=== PATIENT | female | born 1980 | race Caucasian/White ===

== ENCOUNTER 2016-08-05 03:18 | Emergency (ER) | payer MEDICAID, MEDICARE, OTHER ==
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
[2016-08-05 11:13] VITALS: BP 131/84
== END 2016-08-05 05:50 | disposition home or self-care (01) ==
LOC: CC.ED 03:20
DX: S16.1XXA Strain of muscle, fascia and tendon at neck level, initial encounter (principal); S80.02XA Contusion of left knee, initial encounter; S80.01XA Contusion of right knee, initial encounter; S00.81XA Abrasion of other part of head, initial encounter; F10.129 Alcohol abuse with intoxication, unspecified; J45.909 Unspecified asthma, uncomplicated; F41.9 Anxiety disorder, unspecified; F32.9 Major depressive disorder, single episode, unspecified; V89.2XXA Person injured in unspecified motor-vehicle accident, traffic, initial encounter
CPT/HCPCS: 70450; 72125; 99284

== ENCOUNTER 2017-12-02 15:45 | Emergency (ER) | payer MEDICAID ==
[2017-12-02] MEDS ORDERED: methylPREDNISolone Acetate 80 MG/ML SDV IM ONE (16:53)
[2017-12-02] MEDS ORDERED: cefTRIAXone 1 GM Vial IM ONE (16:53)
[2017-12-02] MEDS ORDERED: Lidocaine 1% 20 ML MDV INJECT ONE (16:53)
--- NOTE | 2017-12-02 17:09 | EDM.PDOC ---
ED HPI GENERAL MEDICAL PROBLEM - General Chief Complaint: Respiratory Problem Stated Complaint: COUGH Time Seen by Provider: 12/02/17 17:00 Source of Information: Reports: Patient History Limitations: Reports: No Limitations - History of Present Illness INITIAL COMMENTS - FREE TEXT/NARRATIVE: Patient presents today with increased cough, sinus pressure and congestion. She states started having symptom over a week ago so did increase her florinef and hydrocortisone meds as has been instructed to in the past. She had a fever for the first few days on onset. Now wheezing and coughing more, having trouble sleeping as a result. Admits to increased sinus congestion/purulent drainage. Mild sore throat. Onset: Gradual Duration: Day(s): Location: Reports: Head, Chest Severity: Moderate Associated Symptoms: Reports: Cough, cough w sputum, Fever/Chills, Shortness of Breath. Denies: Confusion, Chest Pain, Loss of Appetite, Nausea/Vomiting - Related Data Allergies Allergy/AdvReac Type Severity Reaction Status Date / Time No Known Allergies Allergy Verified 08/05/16 03:26 Home Meds: Home Meds Hydrocortisone [Cortef] 10 mg PO BEDTIME 07/19/13 [History] Hydrocortisone [Cortef] 15 mg PO BRK 07/19/13 [History] PARoxetine [Paxil] 40 mg PO DAILY 07/19/13 [History] Albuterol Sulfate [Albuterol Sulfate HFA] 7 gm IH Q6HR PRN 08/16/13 [History] oxyCODONE 5 mg PO DAILY PRN 03/07/15 [History] Gabapentin [Neurontin] 300 mg PO TID 09/29/15 [History] Rivaroxaban [Xarelto] 20 mg PO DAILY 09/29/15 [History] traZODone 25 mg PO BEDTIME PRN 09/29/15 [History] Calcium Carbonate [Calcium] 600 mg PO DAILY 10/17/15 [History] Cholecalciferol (Vitamin D3) [Vitamin D3] 1 tab PO DAILY 10/17/15 [History] LORazepam 0.5 mg PO Q6H PRN 10/17/15 [History] Multivitamin [Multivitamins] 1 tab-cap PO DAILY 10/17/15 [History] Nitroglycerin [Nitrostat] 0.4 mg SL Q5M 10/17/15 [History] Fludrocortisone [Florinef] 0.1 mg PO BID #60 10/19/15 [Rx] Levothyroxine 25 mcg PO ACBREAKFAST #30 tablet 10/19/15 [Rx] Past Medical History Cardiovascular History: Reports: Blood Clots/VTE/DVT Other Cardiovascular History: right heart blockage according to pt Respiratory History: Reports: Asthma 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 Social & Family History - Family History Family Medical History: Noncontributory ED ROS GENERAL - Review of Systems Review Of Systems: See Below Constitutional: Reports: Chills, Malaise. Denies: Fever, Weakness, Decreased Appetite HEENT: Reports: Rhinitis, Sinus Problem. Denies: Ear Pain, Throat Pain Respiratory: Reports: Shortness of Breath, Wheezing, Cough, Sputum Cardiovascular: Denies: Chest Pain, Edema, Lightheadedness Endocrine: Denies: Fatigue GI/Abdominal: Denies: Abdominal Pain, Nausea, Vomiting Skin: Reports: No Symptoms Neurological: Reports: No Symptoms Psychiatric: Reports: No Symptoms ED EXAM, GENERAL - Physical Exam Exam: See Below Exam Limited By: No Limitations General Appearance: Alert, WD/WN, No Apparent Distress Ears: Normal External Exam, Normal TMs Nose: Normal Inspection, Normal Mucosa, Nasal Drainage (purulent discharge noted bilaterally) Throat/Mouth: Normal Inspection, Normal Oropharynx Head: Normocephalic Neck: Normal Inspection, Supple, Non-Tender Respiratory/Chest: No Respiratory Distress, Wheezing Cardiovascular: Regular Rate, Rhythm Neurological: Alert, Oriented Skin Exam: Warm, Dry Course - Orders/Labs/Meds Meds: Medications Discontinued Medications Generic Name Dose Route Start Last Admin Trade Name Freq PRN Reason Stop Dose Admin Ceftriaxone Sodium 1 gm 12/02/17 16:53 12/02/17 17:06 Rocephin IM 12/02/17 16:54 1 gm ONETIME ONE Administration Lidocaine HCl 20 ml 12/02/17 16:53 12/02/17 17:06 Xylocaine 1% INJECT 12/02/17 16:54 20 ml ONETIME ONE Administration Methylprednisolone Acetate 80 mg 12/02/17 16:53 12/02/17 17:06 Depo-Medrol IM 12/02/17 16:54 80 mg ONETIME ONE Administration Departure - Departure Time of Disposition: 17:12 Disposition: Home, Self-Care 01 Condition: Fair Clinical Impression: Exacerbation of asthma, Sinusitis - Discharge Information *PRESCRIPTION DRUG MONITORING PROGRAM REVIEWED*: No *COPY OF PRESCRIPTION DRUG MONITORING REPORT IN PATIENT SAM: No Forms: ED Department Discharge Additional Instructions: 1. Push fluids 2. ProAir inhaler 1-2 puffs every 4-6 hours as needed for wheezing/shortness of breath 3. Ceftin 250 mg BID for 10 days 4. Usual meds for Kayden's Disease 5. Follow up with usual provider for ongoing concerns.
[2017-12-02 20:41] VITALS: BP 114/72
== END 2017-12-02 17:35 | disposition home or self-care (01) ==
LOC: CC.ED 15:45
DX: J45.901 Unspecified asthma with (acute) exacerbation (principal); J32.9 Chronic sinusitis, unspecified; Z79.899 Other long term (current) drug therapy
CPT/HCPCS: 96372; 99282; J0696; J1040

== ENCOUNTER 2018-01-17 16:30 | Emergency (ER) | payer MEDICAID ==
[2018-01-17 16:45] VITALS: BP 124/81
--- NOTE | 2018-01-17 17:14 | EDM.PDOC ---
ED HPI GENERAL MEDICAL PROBLEM - General Chief Complaint: Abdominal Pain Stated Complaint: HORRIBLE SIDE PAIN Time Seen by Provider: 01/17/18 16:55 Source of Information: Reports: Patient History Limitations: Reports: No Limitations - History of Present Illness INITIAL COMMENTS - FREE TEXT/NARRATIVE: Patient presents to the ER with complaints of right upper quadrant abdominal pain. States pain started last evening and has persisted still. Feels nauseated, no vomiting. Has not had any fevers. Has been compliant with her Cortef. No previous history of liver abnormalities. Unaware of issues prior with her gallbladder. She denies eating anything unusual last night that could have precipitated the pain. Had a BM today, no blood noted. Has not had a cough. Thought that she possibly had an issue with her back so went to the chiropractor for adjustment today. Onset: Gradual Duration: Hour(s):, Waxing/Waning Location: Reports: Abdomen Quality: Reports: Sharp, Throbbing Severity: Severe Improves with: Reports: None Worsens with: Reports: Other (lying on back) Associated Symptoms: Reports: Loss of Appetite, Nausea/Vomiting. Denies: Chest Pain, Cough, Fever/Chills, Shortness of Breath, Syncope Right Abdominal Pain Score (Numeric/FACES): 8 - Related Data Allergies Allergy/AdvReac Type Severity Reaction Status Date / Time No Known Allergies Allergy Verified 01/17/18 16:45 Home Meds: Home Meds Hydrocortisone [Cortef] 10 mg PO BEDTIME 07/19/13 [History] Hydrocortisone [Cortef] 15 mg PO BRK 07/19/13 [History] PARoxetine [Paxil] 40 mg PO DAILY 07/19/13 [History] oxyCODONE 5 mg PO DAILY PRN 03/07/15 [History] Fludrocortisone [Florinef] 0.1 mg PO DAILY 12/02/17 [History] Past Medical History HEENT History: Reports: Sinusitis Cardiovascular History: Reports: Blood Clots/VTE/DVT Other Cardiovascular History: right heart blockage according to pt Respiratory History: Reports: Asthma Gastrointestinal History: Reports: None Genitourinary History: Reports: None 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 Musculoskeletal History: Reports: Arthritis Other Musculoskeletal History: lyme disease Neurological History: Reports: None Psychiatric History: Reports: Anxiety, Depression 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/Metabolic History: addisons disease Hematologic History: Reports: None Immunologic History: Reports: None Oncologic (Cancer) History: Reports: None Dermatologic History: Reports: None - Infectious Disease History Infectious Disease History: Reports: MRSA - Past Surgical History Head Surgeries/Procedures: Reports: None HEENT Surgical History: Reports: Tonsillectomy, Other (See Below) Other HEENT Surgeries/Procedures: teeth removed, sinus surgery Respiratory Surgical History: Reports: None GI Surgical History: Reports: None Female Surgical History: Reports: None Neurological Surgical History: Reports: None Musculoskeletal Surgical History: Reports: Amputation Other Musculoskeletal Surgeries/Procedures:: Right ankel surgery. Oncologic Surgical History: Reports: None Dermatological Surgical History: Reports: None Social & Family History - Family History Family Medical History: Noncontributory - Tobacco Use Smoking Status *Q: Current Every Day Smoker Years of Tobacco use: 20 Packs/Tins Daily: 0.2 - Caffeine Use Caffeine Use: Reports: None - Recreational Drug Use Recreational Drug Use: No ED ROS GENERAL - Review of Systems Review Of Systems: See Below Constitutional: Reports: Decreased Appetite. Denies: Fever, Chills, Malaise, Weakness HEENT: Reports: No Symptoms Respiratory: Denies: Shortness of Breath, Cough Cardiovascular: Denies: Chest Pain, Edema, Lightheadedness Endocrine: Denies: Fatigue GI/Abdominal: Reports: Abdominal Pain, Nausea. Denies: Constipation, Diarrhea, Hematochezia, Melena, Vomiting : Reports: No Symptoms Musculoskeletal: Reports: Back Pain Skin: Reports: No Symptoms Neurological: Denies: Headache ED EXAM, GI/ABD - Physical Exam Exam: See Below Exam Limited By: No Limitations General Appearance: Alert, WD/WN, Mild Distress Ears: Normal External Exam, Normal TMs Nose: Normal Inspection, Normal Mucosa, No Blood Throat/Mouth: Normal Inspection, Normal Oropharynx Head: Normocephalic Neck: Normal Inspection, Supple, Non-Tender Respiratory/Chest: No Respiratory Distress, Lungs Clear, Normal Breath Sounds Cardiovascular: Regular Rate, Rhythm GI/Abdominal Exam: Normal Bowel Sounds, Soft, Tender (RUQ) Neurological: Alert, Oriented Course - Vital Signs Last Recorded V/S: Last Vital Signs Temp 96.4 F 01/17/18 16:42 Pulse 98 01/17/18 16:42 Resp 18 01/17/18 16:42 BP 124/81 01/17/18 16:42 Pulse Ox 99 01/17/18 16:42 - Orders/Labs/Meds Orders: Active Orders 24 hr Category Date Time Status Abdomen 2V AP Flat Upright [CR] Stat Exams 01/17/18 16:54 Taken Labs: Laboratory Tests 01/17/18 01/17/18 01/17/18 Range/Units 16:54 17:10 17:10 WBC 13.5 H (5.0-10.0) 10^3/uL RBC 5.19 (4.00-5.50) 10^6/uL Hgb 14.1 (12.0-16.0) g/dL Hct 41.6 (37.0-47.0) % MCV 80.2 L (82.0-94.0) fL MCH 27.2 (27.0-32.0) pg MCHC 33.9 (33.0-38.0) g/dL RDW Coeff of Sandra 15.7 H (11.0-15.0) % Plt Count 345 (150-400) 10^3/uL Neut % (Auto) 50.7 (35-85) % Lymph % (Auto) 40.8 (10-55) % Rabun % (Auto) 5.6 (0-16) % Eos % (Auto) 2.5 (0-5) % Baso % (Auto) 0.4 (0-3) % Neut # (Auto) 6.84 (1.80-7.00) 10^3/uL Lymph # (Auto) 5.49 H (1.00-4.80) 10^3/uL Rabun # (Auto) 0.75 (0.00-0.80) 10^3/uL Eos # (Auto) 0.33 (0.00-0.45) 10^3/uL Baso # (Auto) 0.05 10^3/uL Sodium 135 L (136-145) mEq/L Potassium 4.4 (3.5-5.0) mEq/L Chloride 103 (98-106) mEq/L Carbon Dioxide 22 (21-32) mmol/L BUN 24 H (7-18) mg/dL Creatinine 0.9 (0.6-1.0) mg/dL Est Cr Clr Drug Dosing 80.90 mL/min Estimated GFR (MDRD) > 60 (>=60) mL/min Glucose 98 (75-99) mg/dL Calcium 9.3 (8.4-10.1) mg/dL Total Bilirubin 0.2 (0.0-1.0) mg/dL AST 15 (15-37) U/L ALT 20 (12-78) U/L Alkaline Phosphatase 82 (46-116) U/L C-Reactive Protein 0.3 (0.2-0.8) mg/dL Total Protein 8.3 H (6.4-8.2) g/dL Albumin 3.7 (3.4-5.0) g/dL Amylase 74 (25-115) U/L Urine Color Yellow (YELLOW) Urine Appearance Slightly cloudy (CLEAR) Urine pH 7.0 (4.5-8.0) Ur Specific Jakin 1.020 (1.003-1.020) Urine Protein Negative (NEGATIVE) mg/dL Urine Glucose (UA) Negative (NEGATIVE) mg/dL Urine Ketones Negative (NEGATIVE) mg/dL Urine Occult Blood Negative (NEGATIVE) Urine Nitrite Negative (NEGATIVE) Urine Bilirubin Negative (NEGATIVE) Urine Urobilinogen 0.2 (0.2-1.0) EU/dL Ur Leukocyte Esterase Negative (NEGATIVE) Urine RBC Not seen (0-5) /HPF Urine WBC Not seen (0-5) /HPF Ur Squamous Epith Cells Moderate H (NOT SEEN) /HPF Amorphous Sediment Moderate H (NOT SEEN) /HPF Urine Bacteria Few H (NOT SEEN) /HPF Meds: Medications Discontinued Medications Generic Name Dose Route Start Last Admin Trade Name Hill PRN Reason Stop Dose Admin Ketorolac Tromethamine Confirm 01/17/18 17:35 Toradol Administered 01/17/18 17:36 Dose 60 mg .ROUTE .STK-MED ONE - Re-Assessments/Exams Free Text/Narrative Re-Assessment/Exam: 01/17/18 17:49 Lab results are all essentially negative. WBC is mildly elevated, CRP negative. Did discuss xray, shows moderate amount of stool. May need to proceed with gallbladder ultrasound Departure - Departure Time of Disposition: 17:50 Disposition: Home, Self-Care 01 Condition: Good Clinical Impression: Abdominal pain - Discharge Information *PRESCRIPTION DRUG MONITORING PROGRAM REVIEWED*: No *COPY OF PRESCRIPTION DRUG MONITORING REPORT IN PATIENT SAM: No Forms: ED Department Discharge Additional Instructions: 1. Push fluids 2. Dulcolax tab tonight 3. Usual pain meds as at home 4. We will call to schedule a gallbladder ultrasound for you. 5. Call with any questions or concerns. 6. Follow up with primary care provider if ongoing concerns. - My Orders Last 24 Hours: My Active Orders 01/17/18 16:54 Abdomen 2V AP Flat Upright [CR] Stat - Assessment/Plan Last 24 Hours: My Active Orders 01/17/18 16:54 Abdomen 2V AP Flat Upright [CR] Stat
[2018-01-17] MEDS ORDERED: Ketorolac 60 MG/2 ML SDV ONE (17:35)
[2018-01-17 17:40] LABS: CHLORIDE,CL 103 mEq/L (98-106); SODIUM,NA 135 mEq/L (136-145)
[2018-01-17] MEDS ORDERED: Ketorolac 60 MG/2 ML SDV IM ONE (18:22)
== END 2018-01-17 18:00 | disposition home or self-care (01) ==
LOC: CC.ED 16:30
DX: R10.11 Right upper quadrant pain (principal); F17.210 Nicotine dependence, cigarettes, uncomplicated; Z79.899 Other long term (current) drug therapy
CPT/HCPCS: 36415; 74019; 80053; 81001; 82150; 85025; 86140; 96372; 99284; J1885

== ENCOUNTER 2021-03-06 19:08 | Inpatient (IN) | payer MEDICAID, MEDICARE ==
--- NOTE | 2021-03-06 20:15 | EDM.PDOC ---
ED HPI GENERAL MEDICAL PROBLEM - General Chief Complaint: Chest Pain Stated Complaint: chest pain Time Seen by Provider: 03/06/21 19:30 Source of Information: Reports: Patient, Old Records History Limitations: Reports: No Limitations - History of Present Illness INITIAL COMMENTS - FREE TEXT/NARRATIVE: Maribell is a 40 year old female who presents to the ED with c/o chest pain. Was reportedly seen at [facility] in [place] this afternoon for this complaint and had workup. Patient had left and provider called and notified her to come to ED as her troponin was elevated. Trop elevated to 120. Was recommended to come here and have troponin and EKG repeated. Labs were reportedly otherwise normal including renal function, WBC 9.46, hgb 12.9, CMP. Has had 3 week history of "razor blade like chest pain." Reports it is worse with deep breathing. Has felt short of breath. Pain radiates to her shoulder blades and upper back. She reports she has felt somewhat dizzy. Denies any fever or chills. No other symptoms. Does report that approximately 1 month ago she had a "really bad abscessed tooth." She reports she did not finish her antibiotics. Tooth has improved but this chest pain started about a week after. 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 No hx of known covid infection. Has not gotten covid vaccination. Duration: Getting Worse Location: Reports: Chest Quality: Reports: Sharp, Stabbing Severity: Moderate Worsens with: Reports: Breathing Context: Reports: Activity Associated Symptoms: Reports: Chest Pain, Cough, Shortness of Breath. Denies: Confusion, cough w sputum, Diaphoresis, Fever/Chills, Headaches, Loss of Appetite, Malaise, Nausea/Vomiting, Rash, Seizure, Syncope, Weakness Left Upper Back Pain Score (Numeric/FACES): 7 - Related Data Allergies Allergy/AdvReac Type Severity Reaction Status Date / Time No Known Allergies Allergy Verified 03/06/21 19:13 Home Meds: Home Meds Hydrocortisone [Cortef] 10 mg PO BEDTIME 07/19/13 [History] Hydrocortisone [Cortef] 15 mg PO BRK 07/19/13 [History] PARoxetine [Paxil] 40 mg PO DAILY 07/19/13 [History] oxyCODONE 5 mg PO DAILY PRN 03/07/15 [History] Fludrocortisone [Florinef] 0.1 mg PO DAILY 12/02/17 [History] atorvaSTATin Calcium [Lipitor] 40 mg PO DAILY 03/06/21 [History] Past Medical History HEENT History: Reports: Sinusitis Cardiovascular History: Reports: Blood Clots/VTE/DVT Other Cardiovascular History: right heart blockage according to pt Respiratory History: Reports: Asthma Gastrointestinal History: Reports: None Genitourinary History: Reports: None 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 Musculoskeletal History: Reports: Arthritis Other Musculoskeletal History: lyme disease Neurological History: Reports: None Psychiatric History: Reports: Anxiety, Depression 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 Hematologic History: Reports: None Immunologic History: Reports: None Oncologic (Cancer) History: Reports: None Dermatologic History: Reports: None - Infectious Disease History Infectious Disease History: Reports: MRSA - Past Surgical History Head Surgeries/Procedures: Reports: None HEENT Surgical History: Reports: Tonsillectomy, Other (See Below) Other HEENT Surgeries/Procedures: teeth removed, sinus surgery Cardiovascular Surgical History: Reports: None Respiratory Surgical History: Reports: None GI Surgical History: Reports: None Female Surgical History: Reports: None Endocrine Surgical History: Reports: None Neurological Surgical History: Reports: None Musculoskeletal Surgical History: Reports: Amputation Other Musculoskeletal Surgeries/Procedures:: Right ankel surgery. Oncologic Surgical History: Reports: None Dermatological Surgical History: Reports: None Social & Family History - Family History Family Medical History: No Pertinent Family History - Tobacco Use Tobacco Use Status *Q: Current Every Day Tobacco User Years of Tobacco use: 20 Packs/Tins Daily: 1 - Caffeine Use Caffeine Use: Reports: None - Recreational Drug Use Recreational Drug Use: No ED ROS GENERAL - Review of Systems Review Of Systems: Comprehensive ROS is negative, except as noted in HPI. Constitutional: Denies: Fever, Chills, Malaise, Weakness, Fatigue, Night Sweats HEENT: Reports: No Symptoms Respiratory: Reports: Shortness of Breath, Cough Cardiovascular: Reports: Chest Pain, Dyspnea on Exertion, Lightheadedness. Denies: Edema, Orthopnea Endocrine: Reports: Fatigue GI/Abdominal: Reports: No Symptoms Musculoskeletal: Reports: Back Pain Skin: Reports: No Symptoms Neurological: Reports: Dizziness, Weakness. Denies: Confusion, Headache, Numbness, Tingling Psychiatric: Reports: No Symptoms Hematologic/Lymphatic: Reports: No Symptoms Immunologic: Reports: No Symptoms ED EXAM, GENERAL - Physical Exam Exam: See Below Exam Limited By: No Limitations General Appearance: Alert, WD/WN, No Apparent Distress Eye Exam: Bilateral Eye: EOMI, PERRL Throat/Mouth: Other (poor dentition, missing teeth) Head: Atraumatic, Normocephalic Neck: Normal Inspection, Supple, Non-Tender, Full Range of Motion Respiratory/Chest: No Respiratory Distress, Lungs Clear, Normal Breath Sounds, No Accessory Muscle Use, Chest Non-Tender Cardiovascular: Normal Peripheral Pulses, Regular Rate, Rhythm, No Edema, No JVD, No Murmur, No Rub GI/Abdominal: Normal Bowel Sounds, Soft, Non-Tender, No Organomegaly, No D istention, No Abnormal Bruit, No Mass Back Exam: Normal Inspection, Full Range of Motion, NT Extremities: Other (RLE AMPUTEE) Neurological: Alert, Oriented, CN II-XII Intact, Normal Cognition, Normal Gait, Normal Reflexes, No Motor/Sensory Deficits Psychiatric: Normal Affect, Normal Mood Skin Exam: Warm, Dry, Intact, Normal Color, No Rash Lymphatic: No Adenopathy Course - Vital Signs Last Recorded V/S: Last Vital Signs Temp 96.2 F L 03/06/21 19:11 Pulse 72 03/06/21 19:11 Resp 18 03/06/21 19:11 BP 153/86 H 03/06/21 19:11 Pulse Ox 95 03/06/21 19:11 - Orders/Labs/Meds Labs: Laboratory Tests 03/06/21 03/06/21 Range/Units 19:25 19:25 Lactate Dehydrogenase 126 (100-190) U/L Creatine Kinase 30 (21-215) U/L Troponin I High Sens 106.3 H* (<=51) pg/mL SARS CoV-2 RNA Rapid HAILEY Negative (NEGATIVE) - Re-Assessments/Exams Free Text/Narrative Re-Assessment/Exam: 03/06/21 20:09 Consulted with Plant Attendant Dr. Sultana. Given high flat troponin levels and duration of symptoms with normal EKG less likely to be ischemia. More likely to be endocarditis vs. myocarditis. Recommends start antibiotic treatment and get echocardiogram in the morning. Departure - Departure Time of Disposition: 21:14 Disposition: Refer to Observation Condition: Fair Clinical Impression: Chest pain Qualifiers: Chest pain type: unspecified Qualified Code(s): R07.9 - Chest pain, unspecified Sepsis Event Note (ED) - Evaluation Sepsis Screening Result: No Definite Risk - Focused Exam Vital Signs: Vital Signs Temp Pulse Resp BP Pulse Ox 03/06/21 19:11 96.2 F L 72 18 153/86 H 95 - Problem List & Annotations (1) Chest pain SNOMED Code(s): 57983353 Code(s): R07.9 - CHEST PAIN, UNSPECIFIED Status: Acute Current Visit: Yes Qualifiers: Chest pain type: unspecified Qualified Code(s): R07.9 - Chest pain, unspecified - Assessment/Plan Assessment:: Chest pain, concerns for myocarditis/endocarditis Plan: Consulted with human resources coordinator Dr. Sultana. Will admit for IV antibiotics and obtain echocardiogram in am. Monitor on telemetry. Repeat labs in am.
[2021-03-06] MEDS ORDERED: Sodium Chloride 0.9% 10 ML Syringe FLUSH PRN (21:30)
[2021-03-06] MEDS ORDERED: Temazepam 15 MG Cap PO PRN (21:30)
[2021-03-06] MEDS ORDERED: Enoxaparin 30 MG/0.3 ML Syringe SUBCUT SCH (22:15)
[2021-03-06] MEDS: Piperacillin/Tazobactam 3.375 GM in Sodium Chloride 0.9% 100 ML IV SCH (22:27)
[2021-03-06] MEDS ORDERED: VANCOmycin 2 GM/400 ML 2 GM in Premix Bag 1 BAG IV SCH (23:00)
[2021-03-07] MEDS: Ibuprofen 200 MG Tab PO PRN ×2 (02:13→08:21)
[2021-03-07] MEDS: Piperacillin/Tazobactam 3.375 GM in Sodium Chloride 0.9% 100 ML IV SCH ×4 (04:20→21:39)
[2021-03-07] MEDS: Acetaminophen 325 MG Tab PO PRN ×2 (04:28→12:12)
[2021-03-07] MEDS ORDERED: FLUDROCORTISONE 0.1 MG PO SCH (08:00)
[2021-03-07] MEDS ORDERED: PAROXETINE 40 MG PO SCH (08:00)
[2021-03-07] MEDS: HYDROCORTISONE 10 MG PO SCH (08:16)
[2021-03-07] MEDS: PAROXETINE HCL 25 MG PO SCH (08:17)
[2021-03-07] MEDS: FLUDROCORTISONE 0.1 MG PO SCH ×2 (08:17→19:38)
[2021-03-07] MEDS ORDERED: OXYCODONE 10 MG PO PRN (08:35)
--- NOTE | 2021-03-07 10:39 | PN ---
DATE: 03/07/2021 S: Maribell was admitted last night for suspected endocarditis. She had been dealing with some sharp anterior chest pain and shortness of breath for about 3 weeks. She was evaluated at [place] by an [facility] provider and was subsequently sent home, called later, and told her troponin was high. I do not know what their EKG showed at that placed. Nevertheless, she has been having some pleuritic-type anterior chest pain, worse with a deep breaths and sometimes turning, not a lot of cough, but she has been running temps. Isabelle Winston evaluated her in our emergency room and admitted her at the advice of Cardiology for possible endocarditis. She is on vanco and Zosyn at this time and an echocardiogram is pending. The patient has been running temps but she has not had any blood pressure irregularly. She always runs in the low 100s upper 90s typically. She is saturating at 94% on room air and at this time, denies any other concerns. O: GENERAL On physical exam, the patient is in her usual state. HEENT: Grossly benign. The left lower dental bridge shows a capped tooth in the premolar region that shows no erythema, but prior apparently there was a prior abscess there and it is overdue for pulling. NECK: Appears supple. PULMONARY: Lung sounds appear clear throughout. CARDIAC: Tones are distant, regular and no gross abnormalities auscultated. ABDOMEN: Soft. EXTREMITIES: Left lower extremity without edema. ASSESSMENT: 1. PLEURITIC ANTERIOR CHEST PAIN. 2. FEVERS. 3. HISTORY OF TOOTH ABSCESS. P: Patient will continue on IV antibiotics. Echocardiogram today, we are still waiting on potential for transfer. I know Isabelle has made multiple calls but all beds are filled at this time, but patient is on a waiting list as she will need an expert consultation. We are having a hard time with IV access and she will need a PICC line if she requires 6 to 8 weeks of IV antibiotic therapy. LILLI/DENICE /[id number]
--- NOTE | 2021-03-07 15:15 | PCM.SN.2 ---
- Free Text/Narrative Note: Again attempted to transfer patient to higher level of care. Contacted [facility], [facility], Stephanie Barahona, [facility] and Abiel Perez, all who have no bed availability and cannot accept transfer. Pedro Barahona requests call back once echo results available to see if they can accomodate transfer of patient.
[2021-03-07] MEDS: Enoxaparin 40 MG/0.4 ML Syringe SUBCUT SCH (19:40)
[2021-03-07] MEDS: VANCOmycin 1.75 GM/350 ML 1.75 GM in Premix Bag 1 BAG IV SCH (19:41)
[2021-03-07] MEDS ORDERED: ATORVASTATIN CALCIUM 40 MG PO SCH (20:00)
[2021-03-07] MEDS ORDERED: HYDROCORTISONE 5 MG PO SCH (20:00)
[2021-03-08] MEDS: Piperacillin/Tazobactam 3.375 GM in Sodium Chloride 0.9% 100 ML IV SCH ×4 (03:57→22:28)
[2021-03-08] MEDS: FLUDROCORTISONE 0.1 MG PO SCH (07:52)
[2021-03-08] MEDS: HYDROCORTISONE 10 MG PO SCH (07:53)
[2021-03-08] MEDS: PAROXETINE HCL 25 MG PO SCH (07:53)
[2021-03-08 09:17] LABS: CHLORIDE,CL 108 mEq/L (98-106); SODIUM,NA 139 mEq/L (136-145)
[2021-03-08] MEDS: Ibuprofen 200 MG Tab PO PRN (13:08)
--- NOTE | 2021-03-08 19:46 | PCM.PN ---
- General Info Date of Service: 03/08/21 Admission Dx/Problem (Free Text): Chest Pain Subjective Update: Patient is resting comfortably. States her chest discomfort/shortness of breath is much improved. Slept well. Afebrile. Has been eating and drinking well. Denies nausea or vomiting. Does have generalized pain but "no worse, no better". Blood pressure mildly but has remained stable. Functional Status: Reports: Pain Controlled, Tolerating Diet - Review of Systems General: Reports: Fatigue. Denies: Fever HEENT: Denies: Ear Pain, Sinus Congestion, Rhinitis Pulmonary: Reports: Shortness of Breath, Pleuritic Chest Pain. Denies: Cough Cardiovascular: Denies: Chest Pain, Edema, Lightheadedness Gastrointestinal: Reports: Vomiting. Denies: Abdominal Pain, Nausea Genitourinary: Reports: No Symptoms Musculoskeletal: Reports: Back Pain - Patient Data Vitals - Most Recent: Last Vital Signs Temp 97.6 F 03/08/21 16:00 Pulse 75 03/08/21 16:00 Resp 18 03/08/21 16:00 BP 102/69 03/08/21 16:00 Pulse Ox 98 03/08/21 16:00 Weight - Most Recent: 190 lb 8 oz Lab Results Last 24 Hours: Laboratory Results - last 24 hr 03/08/21 03/08/21 Range/Units 08:49 08:49 WBC 4.6 (4.0-11.0) 10^3/uL RBC 4.21 (4.00-5.50) x10^6/uL Hgb 12.2 (12.0-16.0) g/dL Hct 35.1 L (37.0-47.0) % MCV 83.4 (83.0-97.0) fL MCH 29.0 (27.0-32.0) pg MCHC 34.8 (32.0-36.0) g/dL RDW Coeff of Sandra 11.9 (11.0-15.0) % Plt Count 258 (150-400) 10^3/uL Immature Gran % (Auto) 0.0 (0.0-4.9) % Neut % (Auto) 45.3 (41-71) % Lymph % (Auto) 40.6 (24-44) % Kent % (Auto) 8.6 (0-10) % Eos % (Auto) 4.8 (0-6) % Baso % (Auto) 0.7 (0-1) % Neut # (Auto) 2.07 (1.80-8.00) x10^3/uL Lymph # (Auto) 1.85 (0.60-5.00) 10^3/uL Kent # (Auto) 0.39 (0.00-1.50) 10^3/uL Eos # (Auto) 0.22 (0.00-1.50) 10^3/uL Baso # (Auto) 0.03 (0.00-0.50) 10^3/uL Immature Gran # (Auto) 0.00 (0.00-0.49) 10^3/uL Sodium 139 (136-145) mEq/L Potassium 4.2 (3.5-5.0) mEq/L Chloride 108 H (98-106) mEq/L Carbon Dioxide 22 (21-32) mmol/L BUN 10 (7-18) mg/dL Creatinine 1.0 (0.6-1.0) mg/dL Est Cr Clr Drug Dosing 70.71 mL/min Estimated GFR (MDRD) > 60 (>=60) mL/min Glucose 149 H D (75-99) mg/dL Calcium 8.5 (8.4-10.1) mg/dL Total Bilirubin 0.2 (0.0-1.0) mg/dL AST 42 H (15-37) U/L ALT 62 (12-78) U/L Alkaline Phosphatase 86 (46-116) U/L Troponin I High Sens 111.2 H* (<=51) pg/mL C-Reactive Protein 5.3 H (0.2-0.8) mg/dL Total Protein 6.9 (6.4-8.2) g/dL Albumin 3.0 L (3.4-5.0) g/dL Adrián Results Last 24 Hours: Microbiology 03/06/21 21:05 Aerobic Blood Culture - Preliminary Blood - Venous NO GROWTH AFTER 1 DAY Anaerobic Blood Culture - Preliminary NO GROWTH AFTER 1 DAY Med Orders - Current: Current Medications Acetaminophen (Acetaminophen 325 Mg Tab) 650 mg PO Q4H PRN PRN Reason: Pain (Mild 1-3)/fever Last Admin: 03/07/21 12:12 Dose: 650 mg Documented by: Atorvastatin Calcium (Atorvastatin 20 Mg Tab) 40 mg PO BEDTIME [facility] Enoxaparin Sodium (Enoxaparin 40 Mg/0.4 Ml Syringe) 40 mg SUBCUT Q24H [facility] Last Admin: 03/07/21 19:40 Dose: 40 mg Documented by: Fludrocortisone Acetate (Fludrocortisone 0.1 Mg Tab) 0.1 mg PO BID [facility] Hydrocortisone (Hydrocortisone 20 Mg Tab) 10 mg PO BEDTIME [facility] Hydrocortisone (Hydrocortisone 20 Mg Tab) 15 mg PO DAILY@0800 [facility] Piperacillin Sod/Tazobactam (Sod 3.375 gm/ Sodium Chloride) 100 mls @ 200 mls/hr IV Q6H [facility] Last Admin: 03/08/21 16:59 Dose: 200 mls/hr Documented by: Vancomycin HCl 1.75 gm/ Premix 350 mls @ 200 mls/hr IV Q24H [facility] Stop: 03/08/21 20:01 Last Admin: 03/07/21 19:41 Dose: 200 mls/hr Documented by: Vancomycin HCl 1.75 gm/ Premix 350 mls @ 200 mls/hr IV Q12H [facility] Ibuprofen (Ibuprofen 200 Mg Tab) 400 mg PO Q6H PRN PRN Reason: Pain (mild 1-3) Last Admin: 03/08/21 13:08 Dose: 400 mg Documented by: Paroxetine Hcl 25 Mg Tab.Er.24h Own Med 25 mg PO DAILY [facility] Last Admin: 03/08/21 07:53 Dose: 25 mg Documented by: Oxycodone HCl (Oxycodone 5 Mg Tab) 10 mg PO Q12H [facility] Sodium Chloride (Sodium Chloride 0.9% 10 Ml Syringe) 10 ml FLUSH ASDIRECTED PRN PRN Reason: Keep Vein Open Temazepam (Temazepam 15 Mg Cap) 15 mg PO BEDTIME PRN PRN Reason: Sleep Vancomycin HCl (Pharmacy To Dose - Vancomycin) 1 dose .XX ASDIRECTED [facility] Discontinued Medications Enoxaparin Sodium (Enoxaparin 30 Mg/0.3 Ml Syringe) 30 mg SUBCUT BEDTIME [facility] Stop: 03/06/21 22:16 Last Admin: 03/06/21 22:29 Dose: 30 mg Documented by: Fludrocortisone Acetate (Fludrocortisone 0.1 Mg Tab Own Med) 0.1 mg PO BID [facility] Last Admin: 03/08/21 07:52 Dose: 0.1 mg Documented by: Vancomycin HCl 2 gm/ Premix 400 mls @ 200 mls/hr IV ONETIME [facility] Last Admin: 03/06/21 22:29 Dose: 200 mls/hr Documented by: Atorvastatin Calcium [Lipitor] 40 Mg Tablet *Own Med* 40 mg PO BEDTIME [facility] Last Admin: 03/07/21 19:37 Dose: 40 mg Documented by: Non-Formulary Medication (Fludrocortisone [Florinef]) 0.1 mg PO DAILY [facility] (Hydrocortisone [ Cortef] 5 Mg Tablet) *Pt Own Medication 10 mg PO BEDTIME [facility] Last Admin: 03/07/21 19:39 Dose: 10 mg Documented by: (Hydrocortisone [ Cortef] 10 Mg Tablet )*Pt Own Medication 15 mg PO DAILY@0800 [facility] Last Admin: 03/08/21 07:53 Dose: 15 mg Documented by: Oxycodone 10mg Tab * (*Ptom) 0 each PO Q12H PRN PRN Reason: Pain Non-Formulary Medication (Paroxetine [Paxil]) 40 mg PO DAILY [facility] Non-Formulary Medication Oxycodone 10mg 0 each PO Q12H [facility] Oxycodone HCl (Oxycodone 5 Mg Tab) 10 mg PO Q12H [facility] - Exam General: Alert, Oriented HEENT: Mucous Membr. Moist/[place] Neck: Supple Lungs: Clear to Auscultation, Normal Respiratory Effort, Other (no palpable discomfort to chest ) Cardiovascular: Regular Rate, Regular Rhythm GI/Abdominal Exam: Normal Bowel Sounds, Soft, Non-Tender Skin: Warm, Dry Neurological: No New Focal Deficit - Patient Data Lab Results Last 24 hrs: Laboratory Results - last 24 hr 03/08/21 03/08/21 Range/Units 08:49 08:49 WBC 4.6 (4.0-11.0) 10^3/uL RBC 4.21 (4.00-5.50) x10^6/uL Hgb 12.2 (12.0-16.0) g/dL Hct 35.1 L (37.0-47.0) % MCV 83.4 (83.0-97.0) fL MCH 29.0 (27.0-32.0) pg MCHC 34.8 (32.0-36.0) g/dL RDW Coeff of Sandra 11.9 (11.0-15.0) % Plt Count 258 (150-400) 10^3/uL Immature Gran % (Auto) 0.0 (0.0-4.9) % Neut % (Auto) 45.3 (41-71) % Lymph % (Auto) 40.6 (24-44) % Kent % (Auto) 8.6 (0-10) % Eos % (Auto) 4.8 (0-6) % Baso % (Auto) 0.7 (0-1) % Neut # (Auto) 2.07 (1.80-8.00) x10^3/uL Lymph # (Auto) 1.85 (0.60-5.00) 10^3/uL Kent # (Auto) 0.39 (0.00-1.50) 10^3/uL Eos # (Auto) 0.22 (0.00-1.50) 10^3/uL Baso # (Auto) 0.03 (0.00-0.50) 10^3/uL Immature Gran # (Auto) 0.00 (0.00-0.49) 10^3/uL Sodium 139 (136-145) mEq/L Potassium 4.2 (3.5-5.0) mEq/L Chloride 108 H (98-106) mEq/L Carbon Dioxide 22 (21-32) mmol/L BUN 10 (7-18) mg/dL Creatinine 1.0 (0.6-1.0) mg/dL Est Cr Clr Drug Dosing 70.71 mL/min Estimated GFR (MDRD) > 60 (>=60) mL/min Glucose 149 H D (75-99) mg/dL Calcium 8.5 (8.4-10.1) mg/dL Total Bilirubin 0.2 (0.0-1.0) mg/dL AST 42 H (15-37) U/L ALT 62 (12-78) U/L Alkaline Phosphatase 86 (46-116) U/L Troponin I High Sens 111.2 H* (<=51) pg/mL C-Reactive Protein 5.3 H (0.2-0.8) mg/dL Total Protein 6.9 (6.4-8.2) g/dL Albumin 3.0 L (3.4-5.0) g/dL Result Diagrams: 03/08/21 08:49 03/08/21 08:49 Adrián Results Last 24 hrs: Microbiology 03/06/21 21:05 Aerobic Blood Culture - Preliminary Blood - Venous NO GROWTH AFTER 1 DAY Anaerobic Blood Culture - Preliminary NO GROWTH AFTER 1 DAY Sepsis Event Note - Evaluation Sepsis Screening Result: No Definite Risk - Focused Exam Vital Signs: Vital Signs Temp Temp Pulse Resp BP Pulse Ox 03/08/21 16:00 97.6 F 75 18 102/69 98 03/08/21 12:00 98.6 F 95 16 110/45 L 96 03/08/21 08:00 97 F 58 L 18 113/65 98 - Problem List & Annotations (1) Elevated troponin SNOMED Code(s): 884318646, 402730100, 514084890 Code(s): R77.8 - OTHER SPECIFIED ABNORMALITIES OF PLASMA PROTEINS Status: Acute Priority: High Current Visit: Yes (2) Chest pain SNOMED Code(s): 05967414 Code(s): R07.9 - CHEST PAIN, UNSPECIFIED Status: Acute Priority: High Current Visit: Yes Qualifiers: Chest pain type: unspecified Qualified Code(s): R07.9 - Chest pain, unspecified - Problem List Review Problem List Initiated/Reviewed/Updated: Yes - My Orders Last 24 Hours: My Active Orders 03/08/21 16:48 Patient Status [ADT] Routine 03/08/21 20:00 oxyCODONE 10 mg PO Q12H 03/09/21 05:11 BASIC METABOLIC PANEL,BMP [CHEM] AM C-REACTIVE PROTEIN [CHEM] AM CBC WITH AUTO DIFF [HEME] AM TROPONIN I HIGH SENSITIVITY [CHEM] AM - Assessment Assessment:: Chest Pain Elevated Troponin - Plan Plan:: Patient is feeling better today. Vital signs are stable. Did have echocardiogram yesterday afternoon, waiting on results. Troponin is improved at 111. CRP 5.3. Other labs unremarkable. Have been unable to transfer patient due to lack of available beds. Genna did call today with questions in regards to status and need for further cardiology work up. Still on waiting list. Continue to give Zosyn and Vancomycin. Repeat labs in am.
[2021-03-08] MEDS ORDERED: oxyCODONE 5 MG Tab PO SCH (20:00)
[2021-03-08] MEDS ORDERED: Hydrocortisone 20 MG Tab PO SCH (20:00)
[2021-03-08] MEDS ORDERED: OXYCODONE 10 MG PO SCH (20:00)
[2021-03-08] MEDS ORDERED: atorvaSTATin 20 MG Tab PO SCH (20:00)
[2021-03-08] MEDS: oxyCODONE 5 MG Tab PO SCH (20:27)
[2021-03-08] MEDS: Fludrocortisone 0.1 MG Tab PO SCH (20:28)
[2021-03-08] MEDS: VANCOmycin 1.75 GM/350 ML 1.75 GM in Premix Bag 1 BAG IV SCH (20:36)
[2021-03-08] MEDS: Enoxaparin 40 MG/0.4 ML Syringe SUBCUT SCH (20:43)
[2021-03-09] MEDS: Piperacillin/Tazobactam 3.375 GM in Sodium Chloride 0.9% 100 ML IV SCH ×2 (04:12→09:59)
[2021-03-09 07:54] VITALS: BP 107/52; PULSE 48
[2021-03-09] MEDS ORDERED: VANCOmycin 1.75 GM/350 ML 1.75 GM in Premix Bag 1 BAG IV SCH (08:00)
[2021-03-09] MEDS ORDERED: Hydrocortisone 20 MG Tab PO SCH (08:00)
[2021-03-09] MEDS: Fludrocortisone 0.1 MG Tab PO SCH (08:20)
[2021-03-09] MEDS: oxyCODONE 5 MG Tab PO SCH (08:20)
[2021-03-09] MEDS: PAROXETINE HCL 25 MG PO SCH (08:21)
[2021-03-09 08:24] LABS: CHLORIDE,CL 110 mEq/L (98-106); SODIUM,NA 143 mEq/L (136-145)
--- NOTE | 2021-03-09 11:19 | PN ---
DATE: 03/09/2021 S: Maribell is doing fine. She has not had any fevers since admission. She denies any shortness of breath or chest pain at this time. Eating well without any difficulty. Saturations are in the high 90s on room air. Lab work is reviewed from today, which shows a drop in her CRP. Her troponin has also steadily declined since Saturday as well. Echocardiogram did come back and showed no vegetations on any valves at this time. Yesterday, Nafisa Jarrett PA-C in my absence did once again get hold of Cardiology, and transfer was unavailable due to beds being full. O: GENERAL: She is pleasant, alert, and cooperative. NECK: Supple. Veins are flat. LUNGS: Lung sounds remain clear throughout. CARDIAC: Tones are regular. No murmur, gallop, or rub auscultated. ABDOMEN: Her abdomen is soft. EXTREMITIES: Left lower extremity has no edema. ASSESSMENT: 1. CHEST PAIN, IMPROVED. 2. ELEVATED TROPONIN, IMPROVED. 3. GABRIEL DISEASE. P: The patient has improved labs. Completely normal vital signs. Normal echocardiogram as well as negative blood cultures. I did have a long discussion with the patient about the possible need for transesophageal echocardiogram. I will try to get hold of Cardiology today to get their recommendation on ruling out endocarditis before she is discharged. LILLI/DENICE /[id number]
--- NOTE | 2021-03-09 14:58 | DISCH ---
ADMISSION DIAGNOSES: 1. Chest pain. 2. Elevated troponin. 3. Gabriel disease. DISCHARGE DIAGNOSIS: 1. CHEST PAIN, IMPROVED. 2. ELEVATED TROPONIN, IMPROVING. 3. LIKELY MYOCARDITIS. 4. GABRIEL DISEASE. HISTORY: The patient is a 40-year-old female who presented with an elevated troponin from an outside facility along with some pleuritic-type chest pain. She had a URI about a month ago along with an abscessed tooth. She presented to our facility after she had seen her primary provider in [place]. She had already been sent home and then found to have an elevated troponin, so she presented to our facility. At that time, she had a normal EKG. Her vital signs were fine. Low-grade temps were noted but no vital sign irregularities. She was admitted for IV antibiotics in case she had endocarditis. HOSPITAL COURSE: The patient did well while here. She was initially started on vancomycin and Zosyn and has been on them up until the time of discharge. Her troponin has slowly gotten better with a blanca of 141, now down to 94. CRP is essentially 0. She has essentially been afebrile. Blood cultures were negative. A transthoracic echocardiogram showed no signs of any valve vegetations and likelihood is this represented a viral myocarditis. Cardiology was consulted and no further recommendations given prior to the patient's discharge. We did talk to Infectious Disease and ran the case by them, they do feel she should have a followup troponin and echocardiogram in 2 weeks' time, and we will have that facilitated at [facility] in [place] through patient's primary provider Natalie Aguilar. COMPLICATIONS: During this stay were none. CONSULTATIONS: None. DISPOSITION: Discharged home with instruction for followup at [facility] in 2 weeks' time. LILLI/DENICE /[id number]
== END 2021-03-09 12:35 | disposition home or self-care (01) | DRG 315 ==
LOC: CC.ED 19:08 → CC.MS 20:30 → UNDOADMOB 20:30 → CC.MS 20:50 → OBSVTOIN 03-08 16:48
PROVIDERS: ADMIT Nurse Practitioner Family; ATTEND Family Medicine
DX: R07.9 Chest pain, unspecified (principal); I51.4 Myocarditis, unspecified; E27.1 Primary adrenocortical insufficiency; Z79.899 Other long term (current) drug therapy; J45.909 Unspecified asthma, uncomplicated; M19.90 Unspecified osteoarthritis, unspecified site; F41.9 Anxiety disorder, unspecified; F32.A Depression, unspecified; Z86.718 Personal history of other venous thrombosis and embolism; Z79.01 Long term (current) use of anticoagulants; R50.9 Fever, unspecified; Z86.14 Personal history of Methicillin resistant Staphylococcus aureus infection; Z90.89 Acquired absence of other organs; F17.210 Nicotine dependence, cigarettes, uncomplicated; R77.8 Other specified abnormalities of plasma proteins; Z20.822 Contact with and (suspected) exposure to COVID-19
CPT/HCPCS: 36415 ×3; 80048; 80053; 82550; 83615; 84484 ×3; 85025 ×2; 86140 ×2; 87040; 87635; 93005; 93306; 96372; 96374; 96375; 99285; A9270 ×14; J1650 ×2; J2543 ×7; J3370 ×2; U0002

== ENCOUNTER 2021-04-04 15:28 | Emergency (ER) | payer MEDICAID ==
[2021-04-04 15:41] VITALS: BP 134/92; PULSE 79
[2021-04-04] MEDS ORDERED: Lidocaine 1% 30 ML SDV ONE ×2 (15:53→15:55)
[2021-04-04] MEDS ORDERED: cefTRIAXone 1 GM Vial IM ONE (16:13)
--- NOTE | 2021-04-04 16:17 | EDM.PDOC ---
ED HPI GENERAL MEDICAL PROBLEM - General Chief Complaint: General Stated Complaint: TOOTH ABCESS Time Seen by Provider: 04/04/21 16:00 Source of Information: Reports: Patient History Limitations: Reports: No Limitations - History of Present Illness INITIAL COMMENTS - FREE TEXT/NARRATIVE: Maribell is a 40 yo female who presents to the ED with c/o right sided tooth abscess. Reports the last 3 days pain in her right upper tooth has increased, as has the swelling to the right side of her face. REports this is a recurrent issue for her and she needs to get this particular tooth pulled, but her dentist is out of the office all week. She reports since the swelling has gotten worse, she has had some sinus congestion on that side as well as discoloration under her eye. She rates pain 7/10 to right upper tooth. Does report gum swelling. No drainage. Is missing multiple teeth. Hx of drug use. Denies any fever, chills, N/V/D. 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, NSAIDS Right Upper Oral/Mouth Pain Score (Numeric/FACES): 7 - Related Data Allergies Allergy/AdvReac Type Severity Reaction Status Date / Time No Known Allergies Allergy Verified 04/04/21 15:41 Home Meds: Home Meds Hydrocortisone [Cortef] 10 mg PO BEDTIME 07/19/13 [History] Hydrocortisone [Cortef] 15 mg PO BRK 07/19/13 [History] oxyCODONE 5 mg PO DAILY PRN 03/07/15 [History] atorvaSTATin Calcium [Lipitor] 40 mg PO DAILY 03/06/21 [History] Fludrocortisone [Florinef] 0.1 mg PO BID 03/07/21 [History] PARoxetine HCL [Paroxetine ER] 25 mg PO DAILY 03/07/21 [History] Clindamycin HCl 300 mg PO QID 10 Days #40 capsule 04/04/21 [Rx] Past Medical History HEENT History: Reports: Sinusitis Cardiovascular History: Reports: Blood Clots/VTE/DVT Other Cardiovascular History: right heart blockage according to pt Respiratory History: Reports: Asthma Gastrointestinal History: Reports: None Genitourinary History: Reports: None 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: has not had a period in months Musculoskeletal History: Reports: Arthritis Other Musculoskeletal History: lyme disease Neurological History: Reports: None Psychiatric History: Reports: Anxiety, Depression Endocrine/Metabolic History: Reports: [place]'s Disease Other Endocrine/Metabolic History: addisons disease Hematologic History: Reports: None Immunologic History: Reports: None Oncologic (Cancer) History: Reports: None Dermatologic History: Reports: None - Infectious Disease History Infectious Disease History: Reports: MRSA - Past Surgical History Head Surgeries/Procedures: Reports: None HEENT Surgical History: Reports: Tonsillectomy, Other (See Below) Other HEENT Surgeries/Procedures: teeth removed, sinus surgery Cardiovascular Surgical History: Reports: None Respiratory Surgical History: Reports: None GI Surgical History: Reports: None Female Surgical History: Reports: None Endocrine Surgical History: Reports: None Neurological Surgical History: Reports: None Musculoskeletal Surgical History: Reports: Amputation Other Musculoskeletal Surgeries/Procedures:: Right ankel surgery. Oncologic Surgical History: Reports: None Dermatological Surgical History: Reports: None Social & Family History - Family History Family Medical History: No Pertinent Family History - Tobacco Use Tobacco Use Status *Q: Current Every Day Tobacco User Years of Tobacco use: 23 Packs/Tins Daily: 0.3 - Caffeine Use Caffeine Use: Reports: None ED ROS GENERAL - Review of Systems Review Of Systems: Comprehensive ROS is negative, except as noted in HPI. ED EXAM, GENERAL - Physical Exam Exam: See Below Exam Limited By: No Limitations General Appearance: Alert, WD/WN, No Apparent Distress Eye Exam: Right Eye: Other (mild swelling and erythema noted posterior to right eye), Bilateral Eye: EOMI, Normal Fundi, Normal Inspection, PERRL Ears: Normal External Exam, Normal Canal, Hearing Grossly Normal, Normal TMs Nose: Normal Inspection, Normal Mucosa, No Blood Throat/Mouth: Normal Lips, Normal Oropharynx, Normal Voice, No Airway Compromise, Inflammation (right upper 1st molar, tenderness to touch, mild erythema ) Head: Atraumatic, Normocephalic Neck: Normal Inspection, Supple, Non-Tender, Full Range of Motion Respiratory/Chest: No Respiratory Distress, Lungs Clear, Normal Breath Sounds, No Accessory Muscle Use, Chest Non-Tender Cardiovascular: Normal Peripheral Pulses, Regular Rate, Rhythm, No Edema, No Gallop, No JVD, No Murmur, No Rub Psychiatric: Normal Affect, Normal Mood Course - Vital Signs Last Recorded V/S: Last Vital Signs Temp 96.7 F L 04/04/21 15:37 Pulse 79 04/04/21 15:37 Resp 16 04/04/21 15:37 BP 134/92 H 04/04/21 15:37 Pulse Ox 98 04/04/21 15:37 - Orders/Labs/Meds Orders: Active Orders 24 hr Category Date Time Status Isolation [COMM] Routine Oth 04/04/21 15:48 Active Labs: Laboratory Tests 04/04/21 Range/Units 15:48 SARS CoV-2 RNA Rapid [facility] Negative (NEGATIVE) Meds: Medications Discontinued Medications Generic Name Dose Route Start Last Admin Trade Name Baudilioq PRN Reason Stop Dose Admin Ceftriaxone Sodium 1 gm 04/04/21 16:13 04/04/21 16:22 Ceftriaxone 1 Gm Vial IM 04/04/21 16:14 1 gm ONETIME ONE Administration Lidocaine HCl Confirm 04/04/21 15:53 Lidocaine 1% 30 Ml Sdv Administered 04/04/21 15:54 Dose 30 ml .ROUTE .STK-MED ONE Lidocaine HCl Confirm 04/04/21 15:55 04/04/21 16:22 Lidocaine 1% 30 Ml Sdv Administered 04/04/21 15:56 2.1 ml Dose Administration 30 ml .ROUTE .STK-MED ONE Departure - Departure Time of Disposition: 16:15 Disposition: Home, Self-Care 01 Condition: Fair Clinical Impression: Tooth abscess - Discharge Information *PRESCRIPTION DRUG MONITORING PROGRAM REVIEWED*: Not Applicable *COPY OF PRESCRIPTION DRUG MONITORING REPORT IN PATIENT SAM: Not Applicable Prescriptions: Clindamycin HCl 300 mg PO QID 10 Days #40 capsule Instructions: Dental Abscess, [id number] Forms: ED Department Discharge Additional Instructions: - Ice/heat to area as needed for comfort - Tylenol or ibuprofen as needed for pain - Previously prescribed oxycodone as directed - Clindamycin 4x/day x 10 days - Follow up with dentist [facility] - Follow up with PCP for recheck if symptoms worsen or do not improve Sepsis Event Note (ED) - Focused Exam Vital Signs: Vital Signs Temp Pulse Resp BP Pulse Ox 04/04/21 15:37 96.7 F L 79 16 134/92 H 98 - Problem List & Annotations (1) Tooth abscess SNOMED Code(s): 952260424 Code(s): K04.7 - PERIAPICAL ABSCESS WITHOUT SINUS Status: Acute - Problem List Review Problem List Initiated/Reviewed/Updated: Yes - My Orders Last 24 Hours: My Active Orders 04/04/21 15:48 Isolation [COMM] Routine - Assessment/Plan Last 24 Hours: My Active Orders 04/04/21 15:48 Isolation [COMM] Routine Assessment:: Tooth Abscess Plan: above. Was given 1 G Rocephin IM in ED. REcommend starting clindamycin 300 mg QID x 10 days. Follow up with dentist [facility] for extraction. Return to ED for emergent needs.
== END 2021-04-04 16:31 | disposition home or self-care (01) ==
LOC: CC.ED 15:28
DX: K04.7 Periapical abscess without sinus (principal); J45.909 Unspecified asthma, uncomplicated; Z72.0 Tobacco use; Z79.899 Other long term (current) drug therapy; Z20.822 Contact with and (suspected) exposure to COVID-19
CPT/HCPCS: 87804; 96372; 99283; J0696; U0002

== ENCOUNTER 2022-07-21 13:15 | Emergency (ER) | payer MEDICAID ==
[2022-07-21] MEDS ORDERED: Ketorolac 10 MG Tab PO ONE (13:21)
[2022-07-21 18:07] VITALS: BP 126/71; PULSE 78
== END 2022-07-21 14:30 | disposition home or self-care (01) ==
LOC: CC.ED 13:15
DX: S93.402A Sprain of unspecified ligament of left ankle, initial encounter (principal); X50.1XXA Overexertion from prolonged static or awkward postures, initial encounter
CPT/HCPCS: 73610-LT; 99283; A9270-GY

== ENCOUNTER 2024-06-05 21:47 | Emergency (ER) | payer MEDICAID ==
[2024-06-05] MEDS: Sodium Chloride 0.9% 1,000 ML IV SCH (22:13)
[2024-06-05] MEDS: HYDROmorphone 1 MG/ML Syringe IVPUSH ONE ×2 (22:17→22:51)
[2024-06-05] MEDS: Ondansetron 4 MG/2 ML SDV IVPUSH PRN (22:20)
[2024-06-05] MEDS: Hydrocortisone Sodium Succinate 100 MG/2 ML SDV IVPUSH ONE (22:29)
[2024-06-05 22:36] LABS: BASOPHILS ABSOLUTE AUTO 0.03 10^3/uL (0.00-0.50); BASOPHILS PERCENT AUTO 0.3 % (0-1); EOSINOPHILS ABSOLUTE AUTO 0.04 10^3/uL (0.00-1.50); EOSINOPHILS PERCENT AUTO 0.4 % (0-6); HEMATOCRIT 36.1 % (37.0-47.0); HEMOGLOBIN 11.5 g/dL (12.0-16.0); IMMATURE GRAN ABSOLUTE AUTO 0.04 10^3/uL (0.00-0.49); IMMATURE GRAN PERCENT AUTO 0.4 % (0.0-4.9); LYMPHOCYTES ABSOLUTE AUTO 0.41 10^3/uL (0.60-5.00); LYMPHOCYTES PERCENT AUTO 4.5 % (24-44); MEAN CORPUSCULAR HEMOGLOBIN 25.8 pg (27.0-32.0); MEAN CORPUSCULAR HGB CONC 31.9 g/dL (32.0-36.0); MEAN CORPUSCULAR VOLUME 81.1 fL (83.0-97.0); MONOCYTES ABSOLUTE AUTO 0.08 10^3/uL (0.00-1.50); MONOCYTES PERCENT AUTO 0.9 % (0-10); NEUTROPHILS ABSOLUTE AUTO 8.44 x10^3/uL (1.80-8.00); NEUTROPHILS PERCENT AUTO 93.5 % (41-71); PLATELET COUNT,PLT 283 10^3/uL (150-400); RED BLOOD CELL COUNT 4.45 x10^6/uL (4.00-5.50)
[2024-06-05 23:01] LABS: ALBUMIN 2.6 g/dL (3.4-5.0); BILIRUBIN TOTAL 1.7 mg/dL (0.0-1.0); CALCIUM 8.4 mg/dL (8.4-10.1); CREATININE 1.7 mg/dL (0.6-1.0); EST CRCL DRUG DOSING (CG) 40.36 mL/min; MAGNESIUM 0.8 mg/dL (1.8-2.4); POTASSIUM,K 4.2 mEq/L (3.5-5.0); TSH ULTRASENSITIVE 2.28 uIU/mL (0.36-5.60)
[2024-06-05] MEDS: Sodium Chloride 0.9% 1,000 ML IV ONE (23:13)
[2024-06-05] MEDS: Magnesium Sulf/Wat 2 GM/50 mL 2 GM in Premix Bag 1 BAG IV ONE (23:14)
[2024-06-06] MEDS: Iopamidol 755 Mg/ML 100 ML Bottle IVPUSH ONE (00:14)
[2024-06-06] MEDS: Piperacillin/Tazobactam 4.5 GM in Sodium Chloride 0.9% 100 ML IV ONE (00:16)
[2024-06-06] MEDS: Sodium Chloride 0.9% 500 ML IV SCH (00:18)
[2024-06-06 00:31] LABS: APPEARANCE,URINE SLIGHTLY CLOUDY (CLEAR); BILIRUBIN,URINE SMALL (NEGATIVE); COLOR,URINE DARK YELLOW (YELLOW); GLUCOSE,URINE NEGATIVE (NEGATIVE); KETONES,URINE NEGATIVE (NEGATIVE); LEUKOCYTE ESTERASE,URINE NEGATIVE (NEGATIVE); NITRITE,URINE NEGATIVE (NEGATIVE); OCCULT BLOOD,URINE MODERATE (NEGATIVE); PROTEIN,URINE 30 mg/dL (NEGATIVE)
[2024-06-06 00:33] LABS: BACTERIA,URINE OCCASIONAL /HPF (NOT SEEN); EPITHELIAL CELLS,URINE MODERATE /HPF (NOT SEEN); MUCUS,URINE MODERATE /HPF (NOT SEEN); WBC,URINE 0-5 /HPF (0-5)
[2024-06-06] MEDS: VANCOmycin 1.5 GM/300 ML 1.5 GM in Premix Bag 1 BAG IV ONE (00:58)
[2024-06-06] MEDS: Norepinephrine Bit/D5W Premix 250 ML IV SCH (01:11)
[2024-06-06] MEDS: Albuterol/Ipratropium 3.0-0.5 MG/3 ML Neb Soln NEB ONE (01:26)
[2024-06-06 03:11] VITALS: BP 125/71; PULSE 88
== END 2024-06-06 02:40 ==
LOC: CC.ED 21:47
DX: I95.9 Hypotension, unspecified (principal); N17.9 Acute kidney failure, unspecified; E27.2 Addisonian crisis; E83.42 Hypomagnesemia; E11.621 Type 2 diabetes mellitus with foot ulcer; L97.425 Non-pressure chronic ulcer of left heel and midfoot with muscle involvement without evidence of necrosis; R79.89 Other specified abnormal findings of blood chemistry; R77.8 Other specified abnormalities of plasma proteins; Z79.899 Other long term (current) drug therapy; Z79.52 Long term (current) use of systemic steroids; Z88.6 Allergy status to analgesic agent
CPT/HCPCS: 36415; 71045; 71275; 74176; 80053; 80400; 81001; 82533; 83605; 83735; 84443; 84484; 85025; 85379; 87040; 87428-QW; 93005; 93010; 94640; 96361; 96365; 96366; 96367; 96368; 96375; 96376; 99284; 99285-25; J1171; J1720; J2405; J2543; J3360; J3372; J3475; J3490; J7030; J7040; J7620-GY; Q9967